=== PATIENT | male | born 1945 | race Caucasian/White ===

== ENCOUNTER 2017-12-22 09:59 | Inpatient (IN) | payer OTHER ==
[~2017-12-22] VITALS: Ht 180.3 cm; Wt 97.1 kg
[2017-12-22] VITALS (7 sets, daily range): BP systolic 142–157; BP diastolic 79–83
[2017-12-22] MEDS ORDERED: BENICAR20 MG PO (11:25)
[2017-12-22] MEDS ORDERED: LEVOTHYROXINE50 MCG PO (11:25)
[2017-12-22] MEDS ORDERED: BYSTOLIC10 MG PO (11:25)
[2017-12-22] MEDS ORDERED: MYRBETRIQ50 MG PO (11:25)
[2017-12-22] MEDS ORDERED: FUROSEMIDE40 MG PO (11:25)
[2017-12-22] MEDS ORDERED: ACIPHEX20 MG PO (11:25)
[2017-12-22] MEDS ORDERED: LIOTHYRONINE SO5 MCG PO (11:25)
[2017-12-22] MEDS ORDERED: AZOR 10-20 MG1 EACH PO (11:25)
[2017-12-22] MEDS ORDERED: MORPHINE SULFATE 2 MG/ML SYR IV PRN (11:45)
[2017-12-22] MEDS ORDERED: ONDANSETRON HCL 4 MG ORAL DISINTEGRATING TAB PO PRN (11:45)
[2017-12-22 12:27] LABS: BASOPHILS % 0.5 % (0.0-1.0); EOSINOPHILS % 0.3 % (0.0-6.0); HEMATOCRIT 38.4 % (38.2-49.6); HEMOGLOBIN 12.9 g/dL (14.0-18.0); LYMPHOCYTES # (AUTO) 0.5 (1.0-3.2); LYMPHOCYTES % 6.7 % (18.0-39.1); MEAN CORPUSCULAR HEMOGLOBIN 28.8 pg (28-32); MEAN CORPUSCULAR HGB CONC 33.6 g/dL (31-35); MEAN CORPUSCULAR VOLUME 85.7 fL (81-99); MONOCYTES % 13.9 % (4.4-11.3); NEUTROPHILS # (AUTO) 5.8 (2.1-6.9); NEUTROPHILS % 77.8 % (38.7-80.0); PLATELET COUNT 197 x10e3/uL (140-360); RED BLOOD COUNT 4.48 x10e6/uL (4.3-5.7); RED CELL DISTRIBUTION WIDTH 13.6 % (11.7-14.4)
[2017-12-22 12:45] LABS: ALANINE AMINOTRANSFERASE 19 IU/L (0-55); ALBUMIN 3.6 g/dL (3.5-5.0); ALBUMIN/GLOBULIN RATIO 0.9 (0.8-2.0); ALKALINE PHOSPHATASE 64 IU/L (40-150); ANION GAP 13.7 mmol/L (8-16); BLOOD UREA NITROGEN 15 mg/dL (7-26); BUN/CREATININE RATIO 17 (6-25); CALCIUM 9.3 mg/dL (8.4-10.2); CARBON DIOXIDE 26 mmol/L (22-29); CHLORIDE 105 mmol/L (98-107); CHOL/HDL RATIO 3.5 (3.9-4.7); CHOLESTEROL 198 MD/DL (0-199); CREATINE KINASE 172 IU/L (30-200); EST GLOMERULAR FILTRATION RATE > 60 ML/MIN (60-); GLUCOSE 115 mg/dL (74-118); HDL CHOLESTEROL 56 MG/DL (40-60); LDL CHOLESTEROL 133 MG/DL (60-130); POTASSIUM 3.7 mmol/L (3.5-5.1); SODIUM 141 mmol/L (136-145); TRIGLYCERIDES 47 MG/DL (0-149)
[2017-12-22 13:05] LABS: THYROID STIMULATING HORMONE 4.112 uIU/mL (0.350-4.940)
[2017-12-22 13:12] LABS: LYMPHOCYTES % (MANUAL) 8 % (19-48); MONOCYTES % (MANUAL) 12 % (3.4-9.0); NEUTROPHILS % (MANUAL) 80 % (40-74); PLATELET ESTIMATE ADEQUATE; PLATELET MORPHOLOGY COMMENT NORMAL; RBC MORPHOLOGY COMMENT NORMAL
[2017-12-22] MEDS ORDERED: CLOPIDOGREL BISULFATE 75 MG TAB PO ONE (13:30)
--- NOTE | 2017-12-22 15:32 | Diagnostic Imaging Report ---
EXAMINATION: CHEST 2 VIEWS INDICATION: \S\EVALUATE MEDIAST \S\[id number] \S\1517 \S\Y COMPARISON: None FINDINGS: PA and lateral views TUBES and LINES: None. LUNGS: Lungs are moderately inflated. Lungs are clear. There is no evidence of pneumonia or pulmonary edema. PLEURA: No pleural effusion or pneumothorax. HEART AND MEDIASTINUM: The cardiomediastinal silhouette is unremarkable. BONES AND SOFT TISSUES: There are degenerative changes in the thoracic spine. Soft tissues are unremarkable. UPPER ABDOMEN: No free air under the diaphragm. IMPRESSION: No acute thoracic abnormality. Signed by: DR. Haider Moralez MD on 12/22/2017 3:29 PM
[2017-12-22] MEDS ORDERED: ENOXAPARIN INJ 80 MG/0.8 ML SYR SC ONE (16:30)
[2017-12-22] MEDS: FUROSEMIDE 40 MG TAB PO SCH (17:04)
[2017-12-22] MEDS: AMLODIPINE BESYLATE 5 MG TAB PO SCH (17:05)
--- NOTE | 2017-12-22 17:07 | Consultation ---
DATE OF CONSULTATION: December 22, 2017 CARDIAC CONSULTATION REASON FOR CONSULTATION: Chest pain. HISTORY: This is a 72-year-old gentleman who is known to have hypertension and throat cancer, status post chemotherapy and radiation in 2012. In June 2017, he had total cardiac evaluation by Dr. Roman in the medical center including normal nuclear cardiac stress test. A week ago or less, he moved some heavy pot, and since that time, started having the left shoulder pain. Seen by Dr. Murillo, given injection, and it helped him quite a lot. However, his pain is back and now he is having mid-sided chest pain. The chest pain reported as retrosternal radiating to his neck and shoulder. Compatible with anginal type of chest pain. However, patient is anxious and poor historian. Patient presented to the emergency room. His EKG showed left bundle branch block, admitted, and cardiac consultation is obtained. I visited with the patient. Patient admitted for further management. Cardiac consultation is obtained. Patient denied having prior history of angina; however, when he was trying to pull and push that "big pot," he started having chest pressure and chest tightness in addition to the left shoulder pain. Patient denies having any pain to suggest dissecting aortic aneurysm. Patient is relatively still active. REVIEW OF SYSTEMS GENERAL: No fever. No chills. CARDIAC: As per acute illness. PULMONARY: As per acute illness. There is no cough and no hemoptysis. No tearing chest pain. GI: No hematemesis. No melena. Patient takes medication for GERD, swallowing problem since radiation therapy for throat cancer. UROLOGIC: Patient is taking medication for his prostate enlargement. He does have some difficulty in urination at times. No hematuria. NEUROMUSCULAR: He does have aches and pains in several joints. NEUROLOGICAL: No seizure activity. No headaches, etc. SOCIAL HISTORY: He is . He smokes 3 cigars per year. He drinks 1 drink per month. He is retired from [employer]. HOME MEDICATIONS 1. Bystolic 20 mg a day. 2. Atorvastatin 20 one tablet a day. 3. Lasix 40 mg twice a day. 4. Levothyroxine 50 mcg a day. 5. Liothyronine 5 mcg a day. 6. Myrbetriq 50 mg a day. 7. Flomax 0.4 mg a day. ALLERGIES: NONE. PAST MEDICAL HISTORY 1. Hypertension since 2012. 2. Throat cancer in 2015, status post radiation therapy and chemotherapy. 3. Hypothyroidism. 4. Back surgery at lumbar levels. 5. Arthritis of several joints. 6. Fractured left ankle at young age. 7. Cataract surgery. 8. Chronic swelling of the left lower extremity, on Lasix twice a day for that, questionable cause. He does not know why this happened. FAMILY HISTORY: Father at age 35 with car accident. Mother at 65 with cancer. Several of her siblings with cancer. Three healthy sons. PHYSICAL EXAMINATION VITAL SIGNS: Height of 5 feet 11 inches, weight of 216 pounds, blood pressure 150/80, heart rate of 80, and respiratory rate of 18. All pulses are equal. No delay between pulses. NECK: No elevation of jugular venous pulsation. CHEST: Clear to auscultation and percussion. HEART: PMI 5th left intercostal space, first and second heart sounds. ABDOMEN: Soft with good bowel sounds. No organomegaly. EXTREMITIES: No cyanosis. No clubbing. No edema. NEUROLOGIC: Nonfocal. LABORATORY DATA: Sodium of 140, potassium 3.7, BUN of 17, creatinine of 1, and glucose of 119. White blood cell count of 7.42, hemoglobin 12.9, hematocrit 38%, and platelet count of 197,000. First set of cardiac enzymes is normal. IMPRESSION AND PLAN 1. Chest pain /Angina, ACS 2. Abnormal EKG with left bundle branch block. 3. Left shoulder pain after moving heavy object a week ago. 4. Hypertension. 5. Hypercholesterolemia, on no treatment. 6. Survival of throat cancer with difficulty swallowing. 7. Prostate problem with symptoms. 8. Chronic swelling of the left lower extremity, on diuretics with no evidence to suggest pulmonary embolism or deep venous thrombosis. RECOMMENDATIONS: Cardiac-ritter, my recommendation is to load him with Plavix, to get serial cardiac enzymes, and to get good quality chest x-ray PA and lateral to evaluate mediastinum and to give Lovenox, continue BB and Statin. We have discussed with the patient and his . "He had a stress test in June with "normal results." We will follow patient's progression, pending on the results of his lab work and his symptoms, explained a cardiac cath to be done if elevated enzymes and further steps to be done. Patient and are given the option to transfer to Dr. Baxter to do the cath Patient is loaded with Plavix for the time being. Job#: [id number] MADINA MTDDavin
[2017-12-22 18:22] LABS: CREATINE KINASE MB 58.5 ng/mL (0-5.0)
[2017-12-22] MEDS ORDERED: ACETAMINOPHEN 325 MG TAB PO PRN (19:15)
[2017-12-22] MEDS: ZOLPIDEM TARTRATE 5 MG TAB PO PRN (21:37)
[2017-12-23] VITALS (8 sets, daily range): BP systolic 121–152; BP diastolic 64–82
[2017-12-23] MEDS: LIOTHYRONINE SODIUM 5 MCG TAB PO SCH ×2 (06:00→07:56)
[2017-12-23] MEDS: LEVOTHYROXINE SODIUM 50 MCG TAB PO SCH ×2 (06:00→07:57)
[2017-12-23 06:07] LABS: BASOPHILS % 0.6 % (0.0-1.0); EOSINOPHILS # (AUTO) 0.1 (0.0-0.4); EOSINOPHILS % 0.7 % (0.0-6.0); HEMATOCRIT 33.1 % (38.2-49.6); HEMOGLOBIN 10.8 g/dL (14.0-18.0); LYMPHOCYTES # (AUTO) 0.7 (1.0-3.2); LYMPHOCYTES % 9.7 % (18.0-39.1); MEAN CORPUSCULAR HEMOGLOBIN 28.3 pg (28-32); MEAN CORPUSCULAR HGB CONC 32.6 g/dL (31-35); MEAN CORPUSCULAR VOLUME 86.6 fL (81-99); MONOCYTES # (AUTO) 1.2 (0.2-0.8); NEUTROPHILS # (AUTO) 4.7 (2.1-6.9); NEUTROPHILS % 70.4 % (38.7-80.0); PLATELET COUNT 188 x10e3/uL (140-360); RED BLOOD COUNT 3.82 x10e6/uL (4.3-5.7); RED CELL DISTRIBUTION WIDTH 13.7 % (11.7-14.4)
[2017-12-23] MEDS: SODIUM CHLORIDE 0.9% 1000ML 1,000 ML IV SCH ×2 (06:19→20:45)
[2017-12-23 06:36] LABS: ALANINE AMINOTRANSFERASE 23 IU/L (0-55); ALBUMIN 3.1 g/dL (3.5-5.0); ALKALINE PHOSPHATASE 60 IU/L (40-150); ANION GAP 10.8 mmol/L (8-16); BLOOD UREA NITROGEN 15 mg/dL (7-26); BUN/CREATININE RATIO 16 (6-25); CALCIUM 8.7 mg/dL (8.4-10.2); CARBON DIOXIDE 27 mmol/L (22-29); CHLORIDE 105 mmol/L (98-107); CHOL/HDL RATIO 4.2 (3.9-4.7); CHOLESTEROL 167 MD/DL (0-199); CREATININE, SERUM 0.95 mg/dL (0.72-1.25); EST GLOMERULAR FILTRATION RATE > 60 ML/MIN (60-); GLUCOSE 101 mg/dL (74-118); HDL CHOLESTEROL 40 MG/DL (40-60); LDL CHOLESTEROL 112 MG/DL (60-130); POTASSIUM 3.8 mmol/L (3.5-5.1); SODIUM 139 mmol/L (136-145); TRIGLYCERIDES 74 MG/DL (0-149)
[2017-12-23 06:44] LABS: THYROID STIMULATING HORMONE 2.383 uIU/mL (0.350-4.940)
[2017-12-23] MEDS: OLMESARTAN 20 MG TAB PO SCH (07:55)
[2017-12-23] MEDS: ASPIRIN 325 MG TAB PO SCH (07:55)
[2017-12-23] MEDS: PANTOPRAZOLE 40 MG 10ML VIAL IV SCH (07:55)
[2017-12-23] MEDS: FUROSEMIDE 40 MG TAB PO SCH (07:56)
[2017-12-23] MEDS: AMLODIPINE BESYLATE 5 MG TAB PO SCH ×2 (07:56→16:38)
[2017-12-23] MEDS: CLOPIDOGREL BISULFATE 75 MG TAB PO SCH (07:56)
[2017-12-23] MEDS: NEBIVOLOL 10 MG TAB PO SCH (07:56)
[2017-12-23] MEDS ORDERED: FENTANYL CITRATE/PF 100MCG/2 ML INJ ONE (08:37)
[2017-12-23] MEDS ORDERED: BIVALIRUDIN 250 MG/VIAL IV ONE (08:37)
[2017-12-23] MEDS ORDERED: HEPARIN SOD (PORCINE) 1000 UNIT/ML 30ML ONE (08:37)
[2017-12-23] MEDS ORDERED: MIDAZOLAM HCL 2 MG/2 ML VIAL ONE (08:37)
[2017-12-23] MEDS ORDERED: SODIUM CHLORIDE 0.9% 50ML 0 ML ONE (08:38)
[2017-12-23] MEDS ORDERED: LIDOCAINE HCL 2% LOCAL 20 ML VIAL ONE (08:38)
[2017-12-23] MEDS ORDERED: HEPARIN SOD/SOD CHLORIDE 2,000 ML ONE (08:38)
[2017-12-23] MEDS ORDERED: EPTIFIBATIDE 0 ML ONE ×2 (08:38)
[2017-12-23] MEDS ORDERED: NITROGLYCERIN/D5W 200 MCG/ML 250 ML ONE (08:39)
[2017-12-23] MEDS ORDERED: SODIUM CHLORIDE 0.9% 1000ML 1,000 ML ONE (08:39)
[2017-12-23] MEDS ORDERED: IOPAMIDOL 370 MG/ML 200 ML INFUS..BTL INJ ONE ×2 (08:39→09:51)
[2017-12-23] MEDS ORDERED: NEBIVOLOL 10 MG TAB PO SCH (09:00)
--- NOTE | 2017-12-23 10:12 | History and Physical ---
CHIEF COMPLAINT: [age]-old man comes in with chest pain. HISTORY OF PRESENTING ILLNESS: This is Mr. Napoleon Gonzalez, a 72-year-old gentleman with a history of having a recent stress test in June with a normal stress test, was in usual state of health until 2 days prior to admission the patient had some amount of shoulder pain and was seen by his primary care physician, Dr. Murillo, and did not have any chest pains at that time, shoulder pain got better, but on the day of presentation the patient had sharp amount of pain, 9/10 in intensity, and went to the neighboring ER. The patient was given nitro paste and also nitroglycerin, and the pain went down to 3 to 4. With this, the patient was transferred to [facility] for further care. PAST MEDICAL HISTORY: History of hypertension, history of hypothyroidism, history of throat cancer in 2014 status post radiation and chemotherapy. Patient has at this time no nausea, vomiting, and diaphoresis or diarrhea. SURGICAL HISTORY: History of throat cancer surgery and also for lumbar surgery. Patient also has history of fractured left at a young age. FAMILY HISTORY: Father in a car accident, mother with cancer. MEDICATIONS: Include pantoprazole, amlodipine, levothyroxine, Bystolic, liothyronine, Lasix orally. He also takes Myrbetriq and Flomax for his benign prostatic hypertrophy. REVIEW OF SYSTEMS: Positive for chest pain. No shortness of breath. No nausea, vomiting, diarrhea. No constipation. No rectal bleeding. No hematochezia, no hematemesis. No blurry vision and no melena and no reflux esophagitis. Patient with left shoulder pain. SOCIAL HISTORY: No ETOH, no IV drug abuse, and no history of smoking. The patient smokes cigars very occasionally. LAB VALUES: Initial white count was 7.42, hemoglobin of 12.9, hematocrit was 38.4, lymphocyte 6.7, mono was 13.9, neutrophil count was 80. Chemistry: Sodium 142, BUN was 15, creatinine was 0.9. CK-MB was 10.30, LDL was 133, HDL 56. Troponin definitely went up the second time to 2.366 and CK-MB 58.3. ASSESSMENT: 1. Non-ST elevation myocardial infarction. 2. Hypertension. 3. Hyperlipidemia. 4. Benign prostatic hypertrophy. PLAN: 1. To do a cardiac cath. He is scheduled for cath today. Will continue that. 2. I will have to load him up with Plavix, which has been done. Also start him on statins. Restart all his medication and also recheck his thyroid medications. Further recommendations on clinical course. Will continue to monitor the patient after cardiac cath, and referral to Dr. Silva for cardiology. Job#: [id number]
--- NOTE | 2017-12-23 17:08 | Operative Report ---
DATE OF PROCEDURE: December 23, 2017 TITLE OF PROCEDURE: Left cardiac catheterization. INDICATIONS: [id number]-jsamkhila myocardial infarction with troponin of 10.4. TECHNICAL DETAILS: After the usual sterile preparation and draping for the procedure, intravenous Versed and fentanyl given for sedation and local Xylocaine for anesthesia. A 4-Greek sheath established in the right common femoral artery. JL5 and 3DRC to engage coronary. Pigtail for hemodynamic measurement and left ventriculogram. At the end of the procedure sheath was removed. Hemostasis achieved manually. No immediate complications and no blood loss. RESULTS 1. Coronary angiogram. 1. Left main: Free of disease. 2. LAD: Proximally ____ 40% ectasia is noted. Several plaques at 30%. 3. Circumflex coronary artery: Ectatic vessel. Large first obtuse marginal and after that the proper circumflex got 40% lesion. 4. Right coronary artery: There is ostial lesion at 40%. Ectasia at mid part. Several plaques at 30% to 40%. B. Hemodynamics: Aorta pressure 130/80. LV pressure 130/20. C. Left ventriculogram in the right anterior oblique view showed mild hypokinesis over the anterior segment with an ejection fraction of 45%. IMPRESSION: Ectatic vessels. Mild plaquing at 30% to 40%. No severe lesion. Left ventricular ejection fraction of 45%. Ectatic aorta. Aortic root injection showed no dissection. RECOMMENDATIONS: Medical therapy. CTA chest for the completeness of the workup. Job#: [id number]
[2017-12-23] MEDS: ZOLPIDEM TARTRATE 5 MG TAB PO PRN (20:51)
[2017-12-23] MEDS ORDERED: ATORVASTATIN 20 MG TAB PO SCH (21:00)
[2017-12-24] VITALS: BP 98/47
[2017-12-24 04:00] VITALS: BP 92/50
[2017-12-24 06:14] LABS: BASOPHILS % 0.3 % (0.0-1.0); EOSINOPHILS % 0.4 % (0.0-6.0); HEMATOCRIT 32.2 % (38.2-49.6); HEMOGLOBIN 10.7 g/dL (14.0-18.0); LYMPHOCYTES # (AUTO) 0.6 (1.0-3.2); LYMPHOCYTES % 6.9 % (18.0-39.1); MEAN CORPUSCULAR HEMOGLOBIN 28.4 pg (28-32); MEAN CORPUSCULAR HGB CONC 33.2 g/dL (31-35); MEAN CORPUSCULAR VOLUME 85.4 fL (81-99); MONOCYTES # (AUTO) 2.2 (0.2-0.8); MONOCYTES % 24.1 % (4.4-11.3); NEUTROPHILS # (AUTO) 6.1 (2.1-6.9); PLATELET COUNT 175 x10e3/uL (140-360); RED BLOOD COUNT 3.77 x10e6/uL (4.3-5.7); RED CELL DISTRIBUTION WIDTH 13.5 % (11.7-14.4)
[2017-12-24 06:40] LABS: ALANINE AMINOTRANSFERASE 21 IU/L (0-55); ALBUMIN 2.9 g/dL (3.5-5.0); ALBUMIN/GLOBULIN RATIO 0.9 (0.8-2.0); ALKALINE PHOSPHATASE 60 IU/L (40-150); ANION GAP 10.9 mmol/L (8-16); BLOOD UREA NITROGEN 14 mg/dL (7-26); BUN/CREATININE RATIO 15 (6-25); CALCIUM 8.4 mg/dL (8.4-10.2); CARBON DIOXIDE 26 mmol/L (22-29); CHLORIDE 106 mmol/L (98-107); CREATININE, SERUM 0.93 mg/dL (0.72-1.25); EST GLOMERULAR FILTRATION RATE > 60 ML/MIN (60-); GLUCOSE 101 mg/dL (74-118); POTASSIUM 3.9 mmol/L (3.5-5.1); SODIUM 139 mmol/L (136-145)
[2017-12-24 07:19] VITALS: BP 113/66
[2017-12-24 07:44] LABS: BAND NEUTROPHILS % (MANUAL) 3 %; LYMPHOCYTES % (MANUAL) 9 % (19-48); MONOCYTES % (MANUAL) 11 % (3.4-9.0); NEUTROPHILS % (MANUAL) 77 % (40-74)
[2017-12-24 07:45] LABS: PLATELET ESTIMATE ADEQUATE; PLATELET MORPHOLOGY COMMENT NORMAL; RBC MORPHOLOGY COMMENT NORMAL
[2017-12-24] MEDS: NEBIVOLOL 10 MG TAB PO SCH (08:37)
[2017-12-24] MEDS: AMLODIPINE BESYLATE 5 MG TAB PO SCH ×3 (08:40→15:34)
[2017-12-24] MEDS: LEVOTHYROXINE SODIUM 50 MCG TAB PO SCH ×2 (08:40→15:22)
[2017-12-24] MEDS: PANTOPRAZOLE 40 MG 10ML VIAL IV SCH ×2 (08:40→15:21)
[2017-12-24] MEDS: OLMESARTAN 20 MG TAB PO SCH ×3 (08:41→15:34)
[2017-12-24] MEDS: CLOPIDOGREL BISULFATE 75 MG TAB PO SCH ×2 (08:41→15:23)
[2017-12-24] MEDS: LIOTHYRONINE SODIUM 5 MCG TAB PO SCH ×2 (08:42→15:23)
[2017-12-24] MEDS: FUROSEMIDE 40 MG TAB PO SCH ×3 (08:42→15:34)
[2017-12-24] MEDS: ASPIRIN 325 MG TAB PO SCH ×2 (08:42→15:21)
[2017-12-24] MEDS: SODIUM CHLORIDE 0.9% 1000ML 1,000 ML IV SCH (11:02)
[2017-12-24 11:40] VITALS: BP 115/65
[2017-12-24 12:27] VITALS: BP 115/65
[2017-12-24] MEDS ORDERED: SODIUM CHLORIDE 0.9% 100 ML ONE (13:27)
[2017-12-24] MEDS ORDERED: IOPAMIDOL 370 MG/ML 200 ML INFUS..BTL INJ ONE (13:27)
--- NOTE | 2017-12-24 13:49 | Diagnostic Imaging Report ---
EXAM: CTA of the Thoracic Aorta with and without Contrast INDICATION: \S\Rule out dissecting aneurysm \[id number] \S\1250 COMPARISON: Chest radiograph 12/22/2017 TECHNIQUE: Multi-detector CT technology was employed. CTA of the chest was performed before and after the administration of IV contrast. IV CONTRAST: 100 mL Isovue-370 ORAL CONTRAST: None COMPLICATIONS: None RADIATION DOSE: Total DLP: 905.3 mGy*cm Estimated effective dose: (DLP x 0.015 x size factor) mSv CTDIvol has been reviewed. It is below the limits set by the Radiation Protocol Committee (RPC). For optimization of anatomic evaluation, multiplanar reconstruction, maximum intensity projections, and advanced 3-D off-line postprocessing were performed on a dedicated stand-alone workstation under the direct supervision of the interpreting physician. FINDINGS: Potential study limitations: None. LINES/ TUBES: None. VASCULAR WITH ADVANCED 3-D OFF-LINE POSTPROCESSING: Aortic valve contains no significant calcifications. The thoracic aorta is normal in course, caliber, and contour. There is no acute aortic pathology, such as dissection, intramural hematoma, or contained rupture. Aortic plaques: Mild. The arch vessel branching pattern is conventional. All of the arch branch vessels appear widely patent in their proximal portions. Meat Team Member dimensions of the thoracic aorta are as follows: 2.5 cm at the aortic annulus 3.6 cm at the sinuses of Valsalva (the sinotubular junction is preserved) 3.2 cm at the mid ascending aorta 2.9 cm at the distal ascending aorta 2.7 cm at the mid transverse arch 2.8 cm at the proximal descending thoracic aorta 2.8 cm at the diaphragmatic hiatus. LUNGS AND AIRWAYS: Lungs are clear. Airways are patent. PLEURA: The pleural spaces are clear.. HEART AND MEDIASTINUM: The thyroid gland is normal. No mediastinal, hilar or axillary lymphadenopathy. The main pulmonary artery is normal in size. No central pulmonary emboli. The cardiac chambers demonstrate normal atrioventricular and ventriculoarterial concordance, and systemic and pulmonary venous return. The cardiac chambers are normal in size. The coronary arteries have normal origins and courses. There are mild to moderate coronary calcifications identified, though this study was not optimized for coronary artery evaluation. There is no pericardial effusion. LIMITED ABDOMEN: Calcified granuloma in the liver. Abdominal aortic and splenic artery calcifications. 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 BONES: Degenerative changes of the thoracic spine. No suspicious osseous lesions. 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 IMPRESSION: No evidence of dissection or acute aortic pathology. Signed by: DR. Haider Moralez MD on 12/24/2017 1:45 PM
[2017-12-24 15:25] VITALS: BP 125/71
== END 2017-12-24 16:06 | disposition home or self-care (01) | DRG 282 ==
LOC: IMCU 10:05 → OBSVTOIN 12-24 14:30
PROVIDERS: ADMIT Family Medicine; ATTEND Family Medicine
PROC: 4A023N7 Measurement of Cardiac Sampling and Pressure, Left Heart, Percutaneous Approach (ICD-10-PCS; principal; 2017-12-23)
PROC: B2111ZZ Fluoroscopy of Multiple Coronary Arteries using Low Osmolar Contrast (ICD-10-PCS; 2017-12-23)
PROC: B2151ZZ Fluoroscopy of Left Heart using Low Osmolar Contrast (ICD-10-PCS; 2017-12-23)
DX: I21.4 Non-ST elevation (NSTEMI) myocardial infarction (principal); I10 Essential (primary) hypertension; E78.5 Hyperlipidemia, unspecified; N40.0 Benign prostatic hyperplasia without lower urinary tract symptoms; E03.9 Hypothyroidism, unspecified; Z85.89 Personal history of malignant neoplasm of other organs and systems; M25.512 Pain in left shoulder; E78.00 Pure hypercholesterolemia, unspecified
CPT/HCPCS: 71275; J0583; J1327; J1644; J1650; J2001; J2250; J2270; J7030; J7050; Q9967